=== PATIENT | female | born 2000 | race Caucasian/White ===

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

== ENCOUNTER 2022-09-14 09:35 | Inpatient (IN) ==
[2022-09-14] MEDS ORDERED: Ondansetron 4 mg VIAL 2 MG/ML 2 ml VIAL IV ONE ×2 (09:47→11:10)
[2022-09-14] MEDS ORDERED: Lactated Ringers 1000 ml BAG 1,000 ML IV ONE ×2 (09:47→11:10)
[2022-09-14 10:34] LABS: ABS Basophils 0.1 10^3/ul (0-0.2); ABS Eosinophils 0.1 10^3/ul (0-0.6); ABS Lymphocytes 1.1 10^3/ul (1.0-4.8); ABS Monocytes 0.8 10^3/ul (0-0.8); ABS Neutrophils 9.7 10^3/ul (1.5-7.7); Eosinophil % 0.8 %; Hematocrit 41 % (35-47); Hemoglobin 13.6 g/dL (12.0-16.0); Lymphocyte % 9.6 %; Mean Corpuscular HGB Conc 33 g/dL (31-36); Mean Corpuscular Hemoglobin 29 pg (27-31); Mean Corpuscular Volume 87 fL (80-97); Mean Platelet Volume 8.7 fL (7.4-10.4); Platelet Count 299 10^3/uL (150-450); Red Blood Count 4.75 10^6 /uL (3.70-4.87); Red Cell Distribution Width 13 % (10-15); White Blood Count 11.8 10^3/uL (3.5-10.8)
[2022-09-14 10:59] LABS: Urine Benzodiazepine Screen None Detected (None Detect); Urine Cannabinoids Screen Presumptive Positive (None Detect); Urine Opiates Screen None Detected (None Detect)
[2022-09-14] MEDS ORDERED: fentaNYL 100 mcg/2 ml 50 MCG/ML VIAL ONE (11:04)
[2022-09-14] MEDS ORDERED: Midazolam 10 mg/10 ml VIAL 1 mg/ml 10 ml VIAL (10 mg) ONE (11:04)
[2022-09-14] MEDS ORDERED: Lidocaine 2% JELLY 6 ML Topical TOPICAL ONE (11:10)
[2022-09-14] MEDS ORDERED: Midazolam 10 mg/10 ml VIAL 1 mg/ml 10 ml VIAL (10 mg) IV SLOW PU ONE (11:10)
[2022-09-14] MEDS ORDERED: Flumazenil 0.5 mg/5 ml 0.1 MG/ML 5 ml VIAL IV PRN (11:10)
[2022-09-14] MEDS ORDERED: Naloxone 0.4 mg VIAL 0.4 mg/ml 1 ml VIAL IV PUSH PRN (11:10)
[2022-09-14] MEDS ORDERED: fentaNYL 100 mcg/2 ml 50 MCG/ML VIAL IV SLOW PU ONE (11:10)
[2022-09-14 11:14] LABS: Urine Appearance Clear; Urine Bilirubin Negative (Negative); Urine Blood Negative (Negative); Urine Color Straw; Urine Glucose Negative (Negative); Urine Ketones Negative (Negative); Urine Nitrite Negative (Negative); Urine Protein Negative (Negative); Urine Specific Gravity 1.005 (1.002-1.030); Urine Urobilinogen Negative (Negative)
[2022-09-14 11:22] LABS: ALT 9 U/L (7-52); AST 12 U/L (13-39); Acetaminophen < 15 mcg/mL; Albumin 4.2 g/dL (3.2-5.2); Albumin/Globulin Ratio 1.7 (1-3); Alcohol, S < 13 mg/dL (<13); Alkaline Phosphatase 82 U/L (35-149); Anion Gap 8 mmol/L (2-11); Blood Urea Nitrogen 11 mg/dL (6-24); CO2 Carbon Dioxide 25 mmol/L (22-32); Calcium 8.8 mg/dL (8.6-10.3); Chloride 105 mmol/L (101-111); Creatinine, Serum 0.86 mg/dL (0.51-0.95); Globulin 2.5 g/dL (2-4); Glucose 97 mg/dL (70-100); Potassium 3.9 mmol/L (3.5-5.0); Salicylate < 2.50 mg/dL (<30); Sodium 138 mmol/L (135-145); Total Protein 6.7 g/dL (6.4-8.9); eGFR CKD-EPI 99.7 (>60)
[2022-09-14 11:25] LABS: Urine Bacteria Absent (Absent); Urine Red Blood Cell Trace(0-2/hpf) (Absent); Urine Squamous Epithelial Cell Present (Absent); Urine White Blood Cell Trace(0-5/hpf) (Absent)
[2022-09-14 11:30] LABS: HCG Pregnancy < 0.60 mIU/mL
[2022-09-14 11:37] LABS: TSH Ultra Thyroid Stim Horm 3.92 mcIU/mL (0.34-5.60)
[2022-09-14] MEDS ORDERED: diazePAM INJ CARPUJECT 5 MG/ML SYRINGE IM ONE (14:59)
[2022-09-14] MEDS ORDERED: diazePAM INJ CARPUJECT 5 MG/ML SYRINGE ONE (15:02)
[2022-09-14] MEDS ORDERED: Nicotine GUM 4MG FRUIT FLAVOR PO ONE (15:37)
[2022-09-14] MEDS ORDERED: Nicotine PATCH 21 MG/24 HR PATCH ONE (15:37)
[2022-09-14] MEDS ORDERED: Albuterol HFA INHALER 8 gm MDI INH PRN (16:45)
[2022-09-14] MEDS: Nicotine GUM 2MG FRUIT FLAVOR PO PRN (19:01)
[2022-09-15] MEDS: Nicotine GUM 2MG FRUIT FLAVOR PO PRN ×4 (07:32→20:11)
[2022-09-15] MEDS: Nicotine PATCH 21 MG/24 HR PATCH TRANSDERM SCH (07:33)
[2022-09-15] MEDS: Vitamin THERAPEUTIC TAB PO SCH (07:38)
[2022-09-15] MEDS: Al Hydrox/Mg Hydrox/Simet LIQ 30 ML UDC PO PRN (08:42)
[2022-09-16] MEDS: Nicotine GUM 2MG FRUIT FLAVOR PO PRN ×4 (05:52→14:31)
[2022-09-16] MEDS: Al Hydrox/Mg Hydrox/Simet LIQ 30 ML UDC PO PRN (06:04)
[2022-09-16] MEDS: Nicotine PATCH 21 MG/24 HR PATCH TRANSDERM SCH (08:33)
[2022-09-16] MEDS: Vitamin THERAPEUTIC TAB PO SCH (08:33)
[2022-09-16 09:36] VITALS: BP 156/87
== END 2022-09-16 16:27 | disposition home or self-care (01) | DRG 751 ==
LOC: ED 09:35 → EDHOLD 16:37 → BSU 16:42
PROVIDERS: ADMIT Psychiatry & Neurology Addiction Psychiatry; ATTEND Psychiatry & Neurology Addiction Psychiatry

== ENCOUNTER 2023-07-17 17:41 | Inpatient (IN) ==
[2023-07-17] MEDS ORDERED: Charcoal ACTIVATED 25 GM/120 ML BTL PO ONE (18:27)
[2023-07-17 19:17] LABS: ABS Basophils 0.1 10^3/uL (0.0-0.1); ABS Eosinophils 0.2 10^3/uL (0.0-0.5); ABS Lymphocytes 1.4 10^3/uL (1.0-4.8); ABS Monocytes 0.6 10^3/uL (0.0-0.9); ABS Nucleated RBC 0.01 10^3/ul; Eosinophil % 1.6 %; Hematocrit 44.1 % (35-45); Hemoglobin 15.1 g/dL (11.5-14.3); Mean Corpuscular Hgb Conc 34.2 g/dL (31-36); Mean Corpuscular Volume 87.8 fL (80-97); Mean Platelet Volume 8.1 fL (7.5-11.2); Nucleated Red Blood Cells % 0.1 %/100WBC (0.0-0.8); Platelet Count 395 10^3/uL (150-450); Red Blood Count 5.02 10^6/uL (3.63-4.92); Red Cell Distribution Width 13.4 % (12-17); White Blood Count 10.3 10^3/uL (3.8-11.8)
[2023-07-17] MEDS ORDERED: Lactated Ringers 1000 ml BAG 1,000 ML IV ONE (19:22)
[2023-07-17 19:26] LABS: Urine Benzodiazepine Screen None Detected (None Detect); Urine Cannabinoids Screen Presumptive Positive (None Detect); Urine Opiates Screen None Detected (None Detect)
[2023-07-17 19:42] LABS: ALT 10 U/L (7-52); Albumin 4.7 g/dL (3.2-5.2); Albumin/Globulin Ratio 1.2 (1-3); Alkaline Phosphatase 87 U/L (35-149); Blood Urea Nitrogen 9 mg/dL (6-24); CO2 Carbon Dioxide 23 mmol/L (22-32); Calcium 10.1 mg/dL (8.6-10.3); Chloride 105 mmol/L (101-111); Creatinine, Serum 0.74 mg/dL (0.51-0.95); Globulin 3.9 g/dL (2-4); Glucose 79 mg/dL (70-100); HCG Pregnancy 0.86 mIU/mL; Sodium 141 mmol/L (135-145); Total Bilirubin 0.4 mg/dL (0.2-1.0); Total Protein 8.6 g/dL (6.4-8.9); eGFR CKD-EPI 118.7 (>60)
[2023-07-17 19:47] LABS: Anion Gap 13 mmol/L (2-16)
[2023-07-17 19:53] LABS: Urine Appearance Clear; Urine Bilirubin Negative (Negative); Urine Blood 3+ (Negative); Urine Color Straw; Urine Glucose Negative (Negative); Urine Ketones Negative (Negative); Urine Nitrite Negative (Negative); Urine Protein Negative (Negative); Urine Specific Gravity 1.002 (1.002-1.030); Urine Urobilinogen Negative (Negative)
[2023-07-17 19:55] LABS: Acetaminophen < 15 mcg/mL; Alcohol, S < 13 mg/dL (<13); Salicylate < 2.50 mg/dL (<30)
[2023-07-17 19:56] LABS: Urine Bacteria 1+ (Absent); Urine Red Blood Cell 2+(6-10/hpf) (Absent); Urine Squamous Epithelial Cell Present (Absent); Urine White Blood Cell Trace(0-5/hpf) (Absent)
[2023-07-17 22:18] LABS: Potassium Redraw 3.7 mmol/L (3.5-5.0)
[2023-07-18] MEDS ORDERED: Al Hydrox/Mg Hydrox/Simet LIQ 30 ML UDC PO PRN (03:05)
[2023-07-18 03:42] VITALS: BP 157/83
[2023-07-18] MEDS ORDERED: Vitamin THERAPEUTIC TAB PO SCH (09:00)
== END 2023-07-18 14:15 | disposition home or self-care (01) | DRG 755 ==
LOC: ED 17:41 → EDHOLD 07-18 02:37 → BSU 07-18 03:32
PROVIDERS: ADMIT Psychiatry & Neurology Psychiatry; ATTEND Psychiatry & Neurology Psychiatry